=== PATIENT | female | born 1995 | race African-American/Black ===

== ENCOUNTER 2017-02-18 17:49 | Emergency (ER) | payer SELFPAY ==
[~2017-02-18] VITALS: Ht 152.4 cm; Wt 49.0 kg
[2017-02-18] MEDS ORDERED: PROAIR HFA8.5 GM INH (18:49)
[2017-02-18] MEDS ORDERED: PROMETHAZINE-D118 ML ORAL (18:49)
[2017-02-18] MEDS ORDERED: TYLENOL EXTRA500 MG ORAL (18:49)
[2017-02-18] MEDS ORDERED: PREDNISONE20 MG ORAL (18:49)
[2017-02-18 19:01] VITALS: BP 115/75
--- NOTE | 2017-02-18 22:46 | Emergency Room Report ---
History of Present Illness General Chief Complaint: Upper Respiratory Illness Source: Patient Present Illness [facility] The patient is a 22-year-old female presenting for one week of cough. She denies any known sick contacts or recent travel. She admits to mild subjective fevers. She denies other symptoms including nausea, vomiting, myalgia, fatigue , hemoptysis, shortness of breath, abdominal pain Allergies: Coded Allergies: No Known Allergies (Unverified , 02/18/17) Patient History Past Medical History: see triage record Pertinent Family History: none Last Menstrual Period: 01/22/17 Now: No : 0 Reviewed Nursing Documentation: PMH: Agreed, PSxH: Agreed Nursing Documentation-PMH Past Medical History: No Stated History Review of Systems All Other Systems: negative except mentioned in HPI Physical Exam Vital Signs Date Time Temp Pulse Resp B/P (MAP) Pulse Ox O2 Delivery O2 Flow Rate FiO2 02/18/17 18:04 98.1 95 18 113/81 100 Room Air Sp02 EP Interpretation: reviewed, normal General Appearance: no apparent distress, alert, GCS 15, non-toxic Head: normocephalic, atraumatic Eyes: bilateral eye normal inspection, bilateral eye PERRL ENT: hearing grossly normal, normal pharynx, no angioedema, normal voice Neck: full range of motion, supple/symm/no masses Respiratory: chest non-tender, normal breath sounds, speaking full sentences, wheezing - bilat Cardiovascular #1: regular rate, rhythm, no edema Musculoskeletal: back normal, gait/station normal, normal range of motion, non- tender Neurologic: alert, oriented x3, responsive, motor strength/tone normal, sensory intact, speech normal Psychiatric: judgement/insight normal, memory normal, mood/affect normal, no suicidal/homicidal ideation Skin: normal color, no rash, warm/dry, well hydrated Lymphatic: no adenopathy Medical Decision Making PA Attestation Dr. Buchanan is my supervising physician. Patient management was discussed with my supervising physician Diagnostic Impression: Primary Impression: Bronchitis ER Course The patient is a 22-year-old female presenting for one week of cough. Differential diagnosis include but not limited to pharyngitis, sinusitis, AOM, bronchitis, PNA PE: afebrile. No tachypnea. No apparent distress. No TTP over maxillary or frontal sinuses. Lungs: diffuse wheezing. No accessory muscle use. No resp distress Heart: RRR, no abnormal heart sounds Ears: external auditory canal clear. Non erythematous. Bilat TM intact. Cone of light present bilat. No bulging of TM. No serous fluid seen. no nasal D/C No cervical lymphad No tonsillar exudate. Uvula midline.Oropharynx non erythematous The patient will be discharged home with a prescription for Albuterol, oral steroids, cough medication and will followup with primary doctor Last Vital Signs Date Time Temp Pulse Resp B/P (MAP) Pulse Ox O2 Delivery O2 Flow Rate FiO2 02/18/17 19:01 97 18 115/75 100 Room Air 02/18/17 18:04 98.1 Status: improved Disposition: HOME, SELF-CARE Condition: Improved Scripts Prednisone* (PREDNISONE*) 20 Mg Tablet 20 MG ORAL DAILY, #4 TAB 0 Refills Prov: NISSA RICHARDSON P.A. 02/18/17 Albuterol Sulfate* (PROAIR HFA*) 8.5 Gm Hfa.aer.ad 2 PUFFS INH Q6H, #8.5 GM 0 Refills Prov: NISSA RICHARDSON P.A. 02/18/17 D-Methorphan Hb/Prometh Hcl* (PROMETHAZINE-DM SYRUP*) 118 Ml Syrup 5 ML ORAL Q6H Y for For Cough, #118 ML 0 Refills Prov: NISSA RICHARDSON P.A. 02/18/17 Acetaminophen* (TYLENOL EXTRA STRENGTH*) 500 Mg Tablet 500 MG ORAL Q8H Y for Prn Headache/Temp > 101, #30 TAB 0 Refills Prov: NISSA RICHARDSON P.A. 02/18/17 Referrals: NOT CHOSEN IPA/MD,REFERRING (PCP) Patient Instructions: Acute Bronchitis Additional Instructions: I discussed my findings with the patient. All questions and concerns have been answered. Treatment and medication compliance have been addressed. I advised the patient that they need to follow up with PMD in 3-5 days. Return to ED if symptoms worsen, new symptoms arise, or if needed for any reason. Patient verbalized understanding of discharge instructions. NISSA RICHARDSON Feb 18, 2017 22:46
== END 2017-02-18 19:05 | disposition home or self-care (01) ==
LOC: EMR 18:41
DX: J40 Bronchitis, not specified as acute or chronic (principal)
CPT/HCPCS: 99283